=== PATIENT | male | born 1980 | race Caucasian/White ===

== ENCOUNTER 2019-02-05 05:49 | Emergency (ER) | payer OTHER ==
[2019-02-05] MEDS ORDERED: ASPIRIN 325 MG TABLET PO ONE (06:15)
--- NOTE | 2019-02-05 06:20 | PHYS DOC ---
Past History Past Medical History: Hypertension Past Surgical History: Appendectomy Adult General Chief Complaint Chief Complaint: CHEST PAIN [facility] HPI The patient is a pleasant 39-year-old male presents for evaluation of left-sided chest pain which she first noticed swelling. He states that when he went to sleep. No complaints only woke up the pains are present. Reports that his left arm felt tingling. He states he has been working a lot and doing a lot of work outside of work as he has recently moved. Reports a history of hypertension and is on a few medications for this. He states that his father had multiple heart attacks but that he was also a drug user. He says that at the time of the chest pain he felt somewhat lightheaded and had some sweating. He denies fevers or chills, vomiting, palpitations, shortness of breath, abdominal or back pain, productive cough, headache, fusion, difficulty speaking, vision changes, lower extremity edema, or syncope. He is alert and oriented �4, calm, appears to be in no distress. He reports that the discomfort is most completely resolved and is feeling much better. Review of Systems Review of Systems Constitutional: Denies fever or chills [] Eyes: Denies change in visual acuity, redness, or eye pain [] HENT: Denies nasal congestion or sore throat [] Respiratory: Denies cough or shortness of breath [] Cardiovascular: No additional information not addressed in HPI [] +left chest wall pain GI: Denies abdominal pain, nausea, vomiting, bloody stools or diarrhea [] : Denies dysuria or hematuria [] Musculoskeletal: Denies back pain or joint pain [] left arm tingling Integument: Denies rash or skin lesions [] Neurologic: Denies headache, focal weakness or sensory changes [] lightheaded Endocrine: Denies polyuria or polydipsia [] All other systems were reviewed and found to be within normal limits, except as documented in this note. Current Medications Current Medications Current Medications Medications (Trade) Dose Ordered Sig/Yoli Start Time Stop Time Status Last Admin Dose Admin Aspirin (Marquita Aspirin) 325 mg 1X ONCE 02/05/19 06:15 02/05/19 06:16 UNV Physical Exam Physical Exam Constitutional: Well developed, well nourished, no acute distress, non-toxic appearance. [] obese, calm HENT: Normocephalic, atraumatic, bilateral external ears normal, oropharynx moist, no oral exudates, nose normal. [] Eyes: PERRLA, EOMI, conjunctiva normal, no discharge. [] Neck: Normal range of motion, no tenderness, supple, no stridor. [] Cardiovascular:Heart rate regular rhythm, no murmur [] Lungs & Thorax: Bilateral breath sounds clear to auscultation [] no chest wall tenderness Abdomen: Bowel sounds normal, soft, no tenderness, no masses, no pulsatile masses. [] Skin: Warm, dry, no erythema, no rash. [] Back: No tenderness, no CVA tenderness. [] Extremities: No tenderness, no cyanosis, no clubbing, ROM intact, no edema. [] Neurologic: Alert and oriented X 3, normal motor function, normal sensory function, no focal deficits noted. [] Psychologic: Affect normal, judgement normal, mood normal. [] EKG EKG @0559 - Normal sinus rhythm, rate of 72, normal axis, no acute ischemic findings noted, no STEMI, occasional PAC, reviewed and interpreted by myself Radiology/Procedures Radiology/Procedures CXR: Acutely unremarkable[] Course & Med Decision Making Course & Med Decision Making Pertinent Labs and Imaging studies reviewed. (See chart for details) @0748 - patient updated on lab and imaging results. He states his pain is gone is feeling much better. Awaiting second troponin at this time. @0926 - patient updated on second troponin resulting negative. He has been pain- free for over an hour and is asking to go home. Advised patient follow up with his PCP in the next 1-2 days and return to the emergency Department immediately for new or worsening symptoms. He expresses verbal understanding and agreement with this plan and is stable for discharge home at this time. Dragon Disclaimer Dragon Disclaimer This electronic medical record was generated, in whole or in part, using a voice recognition dictation system. Departure Departure: Impression: Primary Impression: Left-sided chest wall pain Disposition: 01 HOME, SELF-CARE Condition: STABLE Referrals: BRUNA CARR PA-C (PCP) Patient Instructions: Chest Pain (Nonspecific), Chest Wall Pain Additional Instructions: Follow-up with your doctor in the next 1-2 days. Return to the ER for new or worsening symptoms. MONTSERRAT TAPIA DO Feb 05, 2019 06:20
--- NOTE | 2019-02-05 06:48 | RAD ---
EXAM: CHEST ONE VIEW. HISTORY: Left chest pain. COMPARISON: None. FINDINGS: A frontal view of the chest is obtained. There are no confluent infiltrates. There is no pneumothorax or pleural effusion. The heart is mildly enlarged. IMPRESSION: 1. Mild cardiomegaly. Electronically signed by: Luis F Hernández MD (02/05/2019 6:45 AM) [facility]
[2019-02-05 06:58] LABS: ALBUMIN/GLOBULIN RATIO 1.3 (1.0-1.7); CALCIUM 8.9 mg/dL (8.5-10.1); GFR 83.6; TOTAL BILIRUBIN 0.3 mg/dL (0.2-1.0)
[2019-02-05 07:07] LABS: BASO % 0 % (0-3); EOS % 0 % (0-3); HEMATOCRIT 42.1 % (39.0-53.0); HEMOGLOBIN 14.5 g/dL (13.0-17.5); LYMPH % 14 % (24-48); MEAN CORPUSCULAR HEMOGLOBIN 31 pg (25-35); MEAN CORPUSCULAR HGB CONC 35 g/dL (31-37); MEAN CORPUSCULAR VOLUME 89 fL (79-100); MONO # 0.8 x10^3/uL (0.0-1.1); MONO % 5 % (0-9); NEUT # 11.7 x10^3uL (1.8-7.7); NEUT % 81 % (31-73); PLATELET COUNT 185 x10^3/uL (140-400); RED BLOOD COUNT 4.73 x10^6/uL (4.30-5.70); RED CELL DISTRIBUTION WIDTH 14.1 % (11.5-14.5); WHITE BLOOD COUNT 14.5 x10^3/uL (4.0-11.0)
[2019-02-05 09:53] VITALS: BP 146/78
--- NOTE | 2019-02-06 06:23 | EKG ---
[address] [address] Test Date: 2019-02-05 Test Time: 05:59:25 Pat Name: TONY OSPINA Department: Room: Gender: M Workforce Planning Analyst: : 1980 Requested By: MONTSERRAT TAPIA Order Number: [id number] Reading MD: Poli Souza MD Measurements Intervals [place] Rate: 72 P: 45 PA: 154 QRS: 3 QRSD: 84 T: 57 QT: 368 QTc: 409 Interpretive Statements SINUS RHYTHM ATRIAL PREMATURE COMPLEX(ES) Electronically Signed On 02-07-2019 15:37:25 CDT by Poli Souza MD
== END 2019-02-05 09:57 | disposition home or self-care (01) ==
LOC: ER 05:49
DX: R07.89 Other chest pain (principal); I10 Essential (primary) hypertension
CPT/HCPCS: 36415; 71045; 80053; 82553; 83690; 83735; 83880; 84484; 85025; 85379; 93005; 99285

== ENCOUNTER 2019-05-12 17:38 | Emergency (ER) | payer OTHER ==
[~2019-05-12] VITALS: Ht 182.9 cm; Wt 127.0 kg
[2019-05-12 17:55] VITALS: BP 129/78
--- NOTE | 2019-05-12 18:04 | PHYS DOC ---
Past History Past Medical History: Hypertension Past Surgical History: Appendectomy Alcohol Use: None Drug Use: None Adult General Chief Complaint Chief Complaint: Neck Pain HPI HPI 39-year-old male presents with right-sided neck pain. The patient had disc replacement surgery in the cervical spine just over one month ago. He has been recovering well. Yesterday and today, the patient felt like there was increased erythema around the surgical site and up on the right side of his neck. He is also had some clear discharge from the end of the incision. Patient denies fever or chills. There has not been purulent drainage. The pain is now a 7 out of 10 pressure sensation. He is having no difficulty breathing or swallowing. He denies any new injuries or trauma. Review of Systems Review of Systems Constitutional: Denies fever or chills [] Eyes: Denies change in visual acuity, redness, or eye pain [] HENT: Right-sided neck pain[] Respiratory: Denies cough or shortness of breath [] Cardiovascular: No additional information not addressed in HPI [] GI: Denies abdominal pain, nausea, vomiting, bloody stools or diarrhea [] : Denies dysuria or hematuria [] Musculoskeletal: Denies back pain or joint pain [] Integument: Denies rash or skin lesions [] Neurologic: Denies headache, focal weakness or sensory changes [] Endocrine: Denies polyuria or polydipsia [] All other systems were reviewed and found to be within normal limits, except as documented in this note. Allergies Allergies Allergies Coded Allergies Type Severity Reaction Last Updated Verified No Known Drug Allergies 02/05/19 No Physical Exam Physical Exam Constitutional: Well developed, well nourished, no acute distress, non-toxic appearance. [] HENT: Normocephalic, atraumatic, bilateral external ears normal, oropharynx moist, no oral exudates, nose normal. [] Eyes: PERRLA, EOMI, conjunctiva normal, no discharge. [] Neck: Normal range of motion, erythema of the skin of the right neck, anterior cervical lymphadenopathy right side, mild pain with palpation. Healing surgical wound with pink margins, no active drainage.[] Cardiovascular:Heart rate regular rhythm, no murmur [] Lungs & Thorax: Bilateral breath sounds clear to auscultation [] Abdomen: Bowel sounds normal, soft, no tenderness, no masses, no pulsatile masses. [] Skin: Warm, dry, no erythema, no rash. [] Back: No tenderness, no CVA tenderness. [] Extremities: No tenderness, no cyanosis, no clubbing, ROM intact, no edema. [] Neurologic: Alert and oriented X 3, normal motor function, normal sensory f unction, no focal deficits noted. [] Psychologic: Affect normal, judgement normal, mood normal. [] EKG EKG [] Radiology/Procedures Radiology/Procedures [] Impressions: CT scan of the neck without contrast 07/12/2018 CLINICAL HISTORY: History of cervical spine surgery in mid March. Right-sided drainage. TECHNIQUE: Unenhanced, contiguous, 3 mm axial sections were obtained through the neck. One or more of the following individualized dose reduction techniques were utilized for this study: 1. Automated exposure control. 2. Adjustment of the mA and/or kV according to patient size. 3. Use of iterative reconstruction technique. FINDINGS: The mucosal structures of the nasopharynx, oropharynx, hypopharynx and larynx are within normal limits. The parotid and submandibular glands are within normal limits. The thyroid gland is heterogeneous. A 2 cm mucous retention cyst is involving the right maxillary sinus. A 2.7 cm mucous retention cyst is involving left maxillary sinus. The patient is post disc replacement at the C5-6 level. No abnormal fluid collection is seen to suggest evidence of an abscess. No hematoma is seen. Degenerative changes are seen involving the uncovertebral and facet joints scattered throughout the mid and lower cervical disc spaces. IMPRESSION: Post disc replacement at C5-6. No acute abnormality is seen. Electronically signed by: Jay Ornelas MD (05/12/2019 7:02 PM) [facility] DICTATED AND SIGNED BY: JAY ORNELAS MD DATE: 05/12/191901 CC: CHRISTA LOGAN DO; BRUNA CARR PA-C ~ Course & Med Decision Making Course & Med Decision Making Pertinent Labs and Imaging studies reviewed. (See chart for details) Patient's CT scan is negative for significant findings other than some mucoid retention cyst in the maxillary sinuses. I don't think this is anything to do with his complaint. Given the erythema and slight warmth of the skin in the area of concern I will treat the patient cellulitis with Keflex for 7 days. He will follow-up with his surgeon's office as needed. He is stable for discharge at this time. [] Dragon Disclaimer Dragon Disclaimer This electronic medical record was generated, in whole or in part, using a voice recognition dictation system. Departure Departure: Impression: Primary Impression: Cellulitis of neck Disposition: HOME, SELF-CARE Condition: STABLE Referrals: BRUNA CARR PA-C (PCP) Patient Instructions: Cellulitis, [id number] Scripts Cephalexin (KEFLEX) 500 Mg Capsule 1 CAP PO TID for cellulitis for 7 Days, #21 CAP 0 Refills Prov: CHRISTA LOGAN DO 05/12/19 CHRISTA LOGAN DO May 12, 2019 18:04
--- NOTE | 2019-05-12 19:04 | RAD ---
CT scan of the neck without contrast 07/12/2018 CLINICAL HISTORY: History of cervical spine surgery in mid March. Right-sided drainage. TECHNIQUE: Unenhanced, contiguous, 3 mm axial sections were obtained through the neck. One or more of the following individualized dose reduction techniques were utilized for this study: 1. Automated exposure control. 2. Adjustment of the mA and/or kV according to patient size. 3. Use of iterative reconstruction technique. FINDINGS: The mucosal structures of the nasopharynx, oropharynx, hypopharynx and larynx are within normal limits. The parotid and submandibular glands are within normal limits. The thyroid gland is heterogeneous. A 2 cm mucous retention cyst is involving the right maxillary sinus. A 2.7 cm mucous retention cyst is involving left maxillary sinus. The patient is post disc replacement at the C5-6 level. No abnormal fluid collection is seen to suggest evidence of an abscess. No hematoma is seen. Degenerative changes are seen involving the uncovertebral and facet joints scattered throughout the mid and lower cervical disc spaces. IMPRESSION: Post disc replacement at C5-6. No acute abnormality is seen. Electronically signed by: Jay Beck MD (05/12/2019 7:02 PM) [facility]
[2019-05-12] MEDS ORDERED: CEPH-264 PO (19:27)
== END 2019-05-12 19:30 | disposition home or self-care (01) ==
LOC: ER 17:38
DX: L03.221 Cellulitis of neck (principal); I10 Essential (primary) hypertension
CPT/HCPCS: 70490; 99284

== ENCOUNTER 2019-07-07 18:27 | Emergency (ER) | payer OTHER ==
[~2019-07-07] VITALS: Ht 182.9 cm; Wt 136.1 kg
[~2019-07-07 18:27] MED LIST: CEPH-264 PO
[2019-07-07] MEDS ORDERED: KETOROLAC 60 MG/2 ML VIAL. IM ONE (19:00)
[2019-07-07] MEDS ORDERED: methylPREDNISolone ACETATE 40 MG/ML VIAL. IM ONE (19:00)
--- NOTE | 2019-07-07 19:02 | PHYS DOC ---
Past History Past Medical History: Hypertension, Sciatica Past Surgical History: Appendectomy, Cholecystectomy, Other Additional Past Surgical Histo: C spine, hernia repair Alcohol Use: None Drug Use: None Adult General Chief Complaint Chief Complaint: BACK PAIN OR INJURY ..." I twisted my back.. moving some boxes.. " " I was twisting.. side to side.. and must have strained my back... " [facility] HPI Patient is a 39 year old male who presents with above hx and complaints right flank back pain that follows the right sciatic nerve down into hip. No midline tenderness. No history of fever or chills. No history of IV drug use. No history immunosuppression. No problems with defecation or urination. 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 Patient has no saddle loss. Review of Systems Review of Systems Constitutional: Denies fever or chills [] Eyes: Denies change in visual acuity, redness, or eye pain [] HENT: Denies nasal congestion or sore throat [] Respiratory: Denies cough or shortness of breath [] Cardiovascular: No additional information not addressed in HPI [] GI: Denies abdominal pain, nausea, vomiting, bloody stools or diarrhea [] : Denies dysuria or hematuria [] Musculoskeletal: Patient has complaints of lumbar sacral back pain and sciatica on right Integument: Denies rash or skin lesions [] Neurologic: Denies headache, focal weakness or sensory changes [] Endocrine: Denies polyuria or polydipsia [] All other systems were reviewed and found to be within normal limits, except as documented in this note. Family History Family History Noncontributory Current Medications Current Medications See nursing for home meds Allergies Allergies Allergies Coded Allergies Type Severity Reaction Last Updated Verified No Known Drug Allergies 02/05/19 No Physical Exam Physical Exam Constitutional: Well developed, well nourished, no acute distress, non-toxic appearance. [] HENT: Normocephalic, atraumatic, bilateral external ears normal, oropharynx moist, no oral exudates, nose normal. []Craig Eyes: PERRLA, EOMI, conjunctiva normal, no discharge. [] Neck: Normal range of motion, no tenderness, supple, no stridor. [] Cardiovascular:Heart rate regular rhythm, no murmur [] Lungs & Thorax: Bilateral breath sounds clear to auscultation [] Abdomen: Bowel sounds normal, soft, no tenderness, no masses, no pulsatile masses. [] No saddle loss. Circumcised male. Old surgical scars. Obese. Skin: Warm, dry, no erythema, no rash. Tattoos. Back: No tenderness, no CVA tenderness. [] Extremities: No tenderness, no cyanosis, no clubbing, ROM intact, no edema. [] Straight leg lift on right exacerbates his sciatic pain Neurologic: Alert and oriented X 3, normal motor function, normal sensory function, no focal deficits noted. []DTRs +2 at patella. Patient is ambulatory. Psychologic: Affect anxious, judgement normal, mood normal. [] EKG EKG [] Radiology/Procedures Radiology/Procedures X-rays deferred at this time.[] Course & Med Decision Making Course & Med Decision Making Pertinent Labs and Imaging studies reviewed. (See chart for details) Use ice packs as needed. Gentle massage. Take Tylenol and ibuprofen for pain. For marked pain take Vicoprofen and Flexeril. Follow-up primary care. Return if any concerns. If no improvement may need further evaluation of lumbar sacral and sciatic pain. Impression: 1. Muscle Strain- Back 2. Rt. Sciatica [] Dragon Disclaimer Dragon Disclaimer This electronic medical record was generated, in whole or in part, using a voice recognition dictation system. Departure Departure: Disposition: 01 HOME/RESIDENCE PRIOR TO ADM Condition: STABLE Referrals: BRUNA CARR PA-C (PCP) Scripts Cyclobenzaprine Hcl (CYCLOBENZAPRINE HCL) 10 Mg Tablet 10 MG PO tidprn for muscle spasms, #30 TAB Prov: ANGELIKA CANALES MD 07/07/19 Hydrocodone/Ibuprofen (HYDROCODONE-IBUPROFEN 7.5-200 ) 1 Each Tablet 1 TAB PO PRN Q6HRS PRN for PAIN, #30 TAB 0 Refills Prov: ANGELIKA CANALES MD 07/07/19 Dragon Disclaimer This chart was dictated in whole or in part using Voice Recognition software in a busy, high-work load, and often noisy Emergency Department environment. It may contain unintended and wholly unrecognized errors or omissions. ANGELIKA CANALES MD Jul 07, 2019 19:02
[2019-07-07] MEDS ORDERED: HYDR-1179 PO (19:22)
[2019-07-07] MEDS ORDERED: CYCL-331 PO (19:22)
[2019-07-07] MEDS ORDERED: ORPHENADRINE CITRATE 60 MG/2 ML VIAL. IM ONE (19:30)
[2019-07-07] MEDS ORDERED: MORPHINE SULFATE 10 MG/ML SYRINGE. SQ ONE (19:30)
[2019-07-07 20:10] VITALS: BP 148/77
[2019-07-07 20:19] LABS: BACTERIA,URINE 0 /HPF (0-FEW); BILIRUBIN,URINE NEG (NEG); CLARITY,URINE CLEAR; COLOR,URINE AMBER; GLUCOSE,URINE NEG (NEG); NITRITE,URINE NEG (NEG); RBC,URINE RARE /HPF (0-2); SQUAMOUS EPITHELIAL CELL,UR OCC /LPF; UROBILINOGEN,URINE 0.2 mg/dL (0.2 mg/dL); WBC,URINE 0 /HPF (0-4)
[2019-07-07 20:34] LABS: AMPHETAMINE/METHAMPHETAMINE NEG (NEG); BARBITURATES NEG (NEG); BENZODIAZEPINES NEG (NEG); CANNABINOIDS NEG (NEG); COCAINE NEG (NEG); METHADONE NEG (NEG); OPIATES NEG (NEG); PHENCYCLIDINE NEG (NEG)
== END 2019-07-07 20:13 | disposition home or self-care (01) ==
LOC: ER 18:27
DX: S39.012A Strain of muscle, fascia and tendon of lower back, initial encounter (principal); M54.41 Lumbago with sciatica, right side; I10 Essential (primary) hypertension; Z90.89 Acquired absence of other organs; Z90.49 Acquired absence of other specified parts of digestive tract; Z98.890 Other specified postprocedural states; X50.0XXA Overexertion from strenuous movement or load, initial encounter; Y93.89 Activity, other specified; Y92.89 Other specified places as the place of occurrence of the external cause; Y99.8 Other external cause status
CPT/HCPCS: 36415; 80307; 81001; 96372; 99284; J1030; J1885; J2270; J2360

== ENCOUNTER → 2021-02-17 | Outpatient (CLI) | payer OTHER ==
[~2021-02-17] MED LIST changes: +CYCL-331 PO; +HYDR-1179 PO
--- NOTE | 2021-02-17 15:24 | RAD ---
EXAM: Bilateral knees, standing view; left knee, 2 views. HISTORY: Pain. COMPARISON: None. FINDINGS: A standing view both knees and 2 views of the left knee are obtained. There is no fracture, dislocation or subluxation. There is a moderate left knee effusion. There is mild left patellofemora l compartment spurring. There is enthesopathy along the superior left patella. IMPRESSION: 1. Moderate left knee effusion. 2. Mild left patellofemoral compartment osteoarthritis. Electronically signed by: Kalee Gates MD (02/17/2021 3:22 PM) [id number]
== END ==
LOC: RAD 15:00
PROVIDERS: ATTEND Physician Assistant
DX: M17.12 Unilateral primary osteoarthritis, left knee (principal); M25.462 Effusion, left knee; M76.892 Other specified enthesopathies of left lower limb, excluding foot; M25.562 Pain in left knee
CPT/HCPCS: 73560; 73565

== ENCOUNTER 2021-05-29 15:11 | Emergency (ER) | payer OTHER ==
[~2021-05-29] VITALS: Ht 182.9 cm; Wt 127.2 kg
[~2021-05-29 15:11] MED LIST changes: -CYCL-331 PO; +CYCL10TA19 PO
[2021-05-29 15:31] VITALS: BP 109/77
[2021-05-29] MEDS ORDERED: IV NORMAL SALINE 1,000ML 1,000 ML IV ONE (15:45)
[2021-05-29] MEDS ORDERED: MORPHINE SULFATE 4 MG/ML DISP.SYRIN. IV ONE (15:45)
[2021-05-29] MEDS ORDERED: ONDANSETRON PF 4 MG/2 ML VIAL. IVP ONE (15:45)
[2021-05-29 16:02] LABS: BASO % 1 % (0-3); EOS # 0.3 x10^3/uL (0.0-0.7); EOS % 4 % (0-3); HEMATOCRIT 43.5 % (39.0-53.0); LYMPH # 1.9 x10^3/uL (1.0-4.8); LYMPH % 28 % (24-48); MEAN CORPUSCULAR HEMOGLOBIN 30 pg (25-35); MEAN CORPUSCULAR HGB CONC 35 g/dL (31-37); MEAN CORPUSCULAR VOLUME 87 fL (79-100); MONO # 0.4 x10^3/uL (0.0-1.1); MONO % 6 % (0-9); NEUT # 4.2 x10^3uL (1.8-7.7); NEUT % 61 % (31-73); PLATELET COUNT 139 x10^3/uL (140-400); RED BLOOD COUNT 5.01 x10^6/uL (4.30-5.70); RED CELL DISTRIBUTION WIDTH 14.6 % (11.5-14.5); WHITE BLOOD COUNT 6.8 x10^3/uL (4.0-11.0)
[2021-05-29 16:12] LABS: CALCIUM 8.4 mg/dL (8.5-10.1); CREATININE 1.1 mg/dL (0.7-1.3); GFR 74.1; POTASSIUM 3.5 mmol/L (3.5-5.1)
[2021-05-29] MEDS ORDERED: IOHEXOL 300 MG/ML 75 ML VIAL. IV ONE (16:15)
[2021-05-29 16:18] LABS: ALBUMIN 3.8 g/dL (3.4-5.0); ALBUMIN/GLOBULIN RATIO 1.3 (1.0-1.7); TOTAL BILIRUBIN 0.4 mg/dL (0.2-1.0); TOTAL PROTEIN 6.8 g/dL (6.4-8.2)
--- NOTE | 2021-05-29 16:38 | RAD ---
PQRS Compliance Statement: One or more of the following individualized dose reduction techniques were utilized for this examinat ion: 1. Automated exposure control 2. Adjustment of the mA and/or kV according to patient size 3. Use of iterative reconstruction technique Exam performed: CT abdomen and pelvis with contrast HISTORY: Lower abdominal and pelvic pain history of right inguinal hernia repair. DATE OF SERVICE: 05/29/2021. COMPARISON: None available TECHNIQUE: Contiguous helical acquisitions are obtained through the abdomen and pelvis during intrave nous administration of 75 cc of Isovue-370. Sagittal and coronal reformatted images are obtained and reviewed. FINDINGS: The lung bases are clear. The visualized heart is normal. Diffuse hepatic steatosis. Spleen and pancreas appear normal. Cholecystectomy. Both adrenal glands an d bilateral kidneys are normal in size with symmetric excretion of contrast via both kidneys. There i s no hydronephrosis or nephrolithiasis. Small and large bowel loops are nondilated and unremarkable. There is diffuse scattered stool throughout the colon. Previous appendectomy. The urinary bladder is distended. The prostate gland, seminal vesicles and rectum appear normal. Interrogation of bone windows demonstrates mild spondylotic changes. IMPRESSION: No acute intra-abdominal or pelvic process seen. Diffuse scattered stool throughout the colon. Correlate clinically for constipation. Electronically signed by: Celine Monsno MD (05/29/2021 4:35 PM) [facility]
[2021-05-29] MEDS ORDERED: MAGN296S68 PO (17:58)
[2021-05-29] MEDS ORDERED: POLY119P4 PO (17:58)
--- NOTE | 2021-05-29 17:58 | PHYS DOC ---
Past History Past Medical History: Hypertension, Sciatica Additional Past Medical Histor: testosterone supplements ([employer]) Past Surgical History: Appendectomy, Cholecystectomy, Other Additional Past Surgical Histo: C spine, hernia repair (VASYL SHAIKH [employer]) Alcohol Use: None Drug Use: None (BESSIEV[employer]YL JAMA [employer]) Adult General Chief Complaint Chief Complaint: GROIN PAIN HPI HPI Patient is a 41-year-old male with history of cholecystectomy, appendectomy presenting to the ED today complaining of 10 out of 10 lower abdominal pain, symptoms began 1 hour prior to coming to the ED. Patient describes the pain as sharp and intermittent, he states the pain comes and 5 minutes cycles. Denies any fever, nausea, vomiting. Denies anything specifically exacerbating or relieving the pain ([employer]KH [employer]) Review of Systems Review of Systems Constitutional: Denies fever or chills [] Eyes: Denies change in visual acuity, redness, or eye pain [] HENT: Denies nasal congestion or sore throat [] Respiratory: Denies cough or shortness of breath [] Cardiovascular: No additional information not addressed in HPI [] GI: Reports lower abdominal pain, denies nausea, vomiting, bloody stools or diarrhea [] : Denies dysuria or hematuria [] Musculoskeletal: Denies back pain or joint pain [] Integument: Denies rash or skin lesions [] Neurologic: Denies headache, focal weakness or sensory changes [] All other systems were reviewed and found to be within normal limits, except as documented in this note. ([employer]KH [employer]) Current Medications Current Medications Current Medications Medications (Trade) Dose Ordered Sig/Yoli Start Time Stop Time Status Last Admin Dose Admin Iohexol (Omnipaque 300 Mg/ml) 75 ml 1X ONCE 05/29/21 16:15 05/29/21 16:16 DC 05/29/21 16:15 75 ML Morphine Sulfate (Morphine 4mg Syringe) 4 mg 1X ONCE 05/29/21 15:45 05/29/21 15:49 DC 05/29/21 15:57 4 MG Ondansetron HCl (Zofran) 4 mg 1X ONCE 05/29/21 15:45 05/29/21 15:49 DC 05/29/21 15:58 4 MG Sodium Chloride 1,000 ml @ 1,000 mls/hr 1X ONCE 05/29/21 15:45 05/29/21 16:44 DC 05/29/21 15:57 1,000 MLS/HR ([employer]KH [employer]) Allergies Allergies Allergies Coded Allergies Type Severity Reaction Last Updated Verified No Known Drug Allergies 02/05/19 No ([employer]KH [employer]) Physical Exam Physical Exam Constitutional: Well developed, well nourished, no acute distress, non-toxic appearance. [] HENT: Normocephalic, atraumatic, bilateral external ears normal, oropharynx moist, no oral exudates, nose normal. [] Eyes: PERRLA, EOMI, conjunctiva normal, no discharge. [] Neck: Normal range of motion, no tenderness, supple, no stridor. [] Cardiovascular:Heart rate regular rhythm, no murmur [] Lungs & Thorax: Bilateral breath sounds clear to auscultation [] Abdomen: Bowel sounds normal, soft, mild mid lower abdominal tenderness, no right upper quadrant or right lower quadrant tenderness, no masses, no pulsatile masses. [] Skin: Warm, dry, no erythema, no rash. [] Back: No tenderness, no CVA tenderness. [] Extremities: No tenderness, no cyanosis, no clubbing, ROM intact, no edema. [] Neurologic: Alert and oriented X 3, normal motor function, normal sensory function, no focal deficits noted. [] Psychologic: Affect normal, judgement normal, mood normal. [] ([employer]) Current Patient Data Vital Signs Vital Signs Date Time Temp Pulse Resp B/P (MAP) Pulse Ox O2 Delivery O2 Flow Rate FiO2 05/29/21 15:31 98.1 67 18 109/77 (88) 98 Room Air Lab Results Laboratory Tests Test 05/29/21 15:50 White Blood Count 6.8 x10^3/uL (4.0-11.0) Red Blood Count 5.01 x10^6/uL (4.30-5.70) Hemoglobin 15.0 g/dL (13.0-17.5) Hematocrit 43.5 % (39.0-53.0) Mean Corpuscular Volume 87 fL (79-100) Mean Corpuscular Hemoglobin 30 pg (25-35) Mean Corpuscular Hemoglobin Concent 35 g/dL (31-37) Red Cell Distribution Width 14.6 % (11.5-14.5) H Platelet Count 139 x10^3/uL (140-400) L Neutrophils (%) (Auto) 61 % (31-73) Lymphocytes (%) (Auto) 28 % (24-48) Monocytes (%) (Auto) 6 % (0-9) Eosinophils (%) (Auto) 4 % (0-3) H Basophils (%) (Auto) 1 % (0-3) Neutrophils # (Auto) 4.2 x10^3uL (1.8-7.7) Lymphocytes # (Auto) 1.9 x10^3/uL (1.0-4.8) Monocytes # (Auto) 0.4 x10^3/uL (0.0-1.1) Eosinophils # (Auto) 0.3 x10^3/uL (0.0-0.7) Basophils # (Auto) 0.0 x10^3/uL (0.0-0.2) Sodium Level 145 mmol/L (136-145) Potassium Level 3.5 mmol/L (3.5-5.1) Chloride Level 105 mmol/L (98-107) Carbon Dioxide Level 30 mmol/L (21-32) Anion Gap 10 (6-14) Blood Urea Nitrogen 22 mg/dL (8-26) Creatinine 1.1 mg/dL (0.7-1.3) Estimated GFR (Cockcroft-Gault) 74.1 BUN/Creatinine Ratio 20 (6-20) Glucose Level 137 mg/dL (70-99) H Calcium Level 8.4 mg/dL (8.5-10.1) L Total Bilirubin 0.4 mg/dL (0.2-1.0) Aspartate Amino Transferase (AST) 49 U/L (15-37) H Alanine Aminotransferase (ALT) 68 U/L (16-63) H Alkaline Phosphatase 41 U/L (46-116) L Total Protein 6.8 g/dL (6.4-8.2) Albumin 3.8 g/dL (3.4-5.0) Albumin/Globulin Ratio 1.3 (1.0-1.7) Lipase 161 U/L (73-393) Ethyl Alcohol Level < 10 mg/dL (0-10) (VASYL SHAIKH APRN) EKG EKG [] (VASYL SHAIKH APRN) Radiology/Procedures Radiology/Procedures []PROCEDURE: CT ABD PELV W/ IV CONTRST ONLY PQRS Compliance Statement: One or more of the following individualized dose reduction techniques were utilized for this examination: 1. Automated exposure control 2. Adjustment of the mA and/or kV according to patient size 3. Use of iterative reconstruction technique Exam performed: CT abdomen and pelvis with contrast HISTORY: Lower abdominal and pelvic pain history of right inguinal hernia repair. DATE OF SERVICE: 05/29/2021. COMPARISON: None available TECHNIQUE: Contiguous helical acquisitions are obtained through the abdomen and pelvis during intravenous administration of 75 cc of Isovue-370. Sagittal and coronal reformatted images are obtained and reviewed. FINDINGS: The lung bases are clear. The visualized heart is normal. Diffuse hepatic steatosis. Spleen and pancreas appear normal. Cholecystectomy. Both adrenal glands and bilateral kidneys are normal in size with symmetric excretion of contrast via both kidneys. There is no hydronephrosis or neph rolithiasis. Small and large bowel loops are nondilated and unremarkable. There is diffuse scattered stool throughout the colon. Previous appendectomy. The urinary bladder is distended. The prostate gland, seminal vesicles and rectum appear normal. Interrogation of bone windows demonstrates mild spondylotic changes. IMPRESSION: No acute intra-abdominal or pelvic process seen. Diffuse scattered stool throughout the colon. Correlate clinically for constipation. Electronically signed by: Celine Monson MD (05/29/2021 4:35 PM) [facility] DICTATED AND SIGNED BY: CELINE MONSON MD DATE: 05/29/21 1627 CC: VASYL SHAIKH APRN; BRUNA CARR PA-C ~MTH0 0 (VASYL SHAIKH APRN) Heart Score C/O Chest Pain: N/A Risk Factors: Risk Factors: DM, Current or recent (<one month) smoker, HTN, HLP, family history of CAD, obesity. Risk Scores: Risk Factors: DM, Current or recent (<one month) smoker, HTN, HLP, family history of CAD, obesity. (VASYL SHAIKH APRN) Course & Med Decision Making Course & Med Decision Making Pertinent Labs and Imaging studies reviewed. (See chart for details) This is a 41-year-old male patient presented to the ED today with lower abdominal pain that began prior to coming to the ED. CBC no acute findings, CMP with AST of 49, ALT of 69, ALK 41. CT of the abdomen and pelvic was negative for any acute findings, noted for constipation. Patient educated on constipation prevention and management. Discharge to home (VASYL SHAIKH APRN) Dragon Disclaimer Dragon Disclaimer This electronic medical record was generated, in whole or in part, using a voice recognition dictation system. (VASYL SHAIKH APRN) Attending Co-Sign The patient was seen and interviewed as well as examined at the bedside. The chart was reviewed. The case was discussed. Agree with the plan of care. (CHRISTA LOGAN DO) Departure Departure: Impression: Primary Impression: Lower abdominal pain Additional Impression: Constipation Disposition: 01 HOME / SELF CARE / HOMELESS Condition: STABLE Referrals: BRUNA CARR PA-C (PCP) follow up in one week Patient Instructions: Abdominal Pain, Constipation, Adult Additional Instructions: You were evaluated in the emergency room and noted to be constipated. Please increase your activity level, increase your dietary fiber intake as well as water intake. Take lowf-ost-tgjilhc remedies for constipation including magnesium citrate anytime you are constipated. You can take MiraLAX or stool softener every day to reduce episodes of constipation Scripts Magnesium Citrate (MAGNESIUM CITRATE) 296 Ml Solution 296 ML PO ONCE, #296 ML Prov: VASYL SHAIKH APRN 05/29/21 Polyethylene Glycol 3350 (MIRALAX) 119 Gm Powder 17 GM PO DAILY for constipation, #527 GM 0 Refills dissolve in water Prov: VASYL SHAIKH APRN 05/29/21 Problem Qualifiers Additional Impression: Constipation Constipation type: unspecified constipation type Qualified Codes: K59.00 - Constipation, unspecified VASYL SHAIKH APRN May 29, 2021 17:58 CHRISTA LOGAN DO May 30, 2021 08:59
[2021-05-29] MEDS ORDERED: MAGNESIUM CITRATE 296 ML SOLUTION. PO ONE (18:30)
[2021-05-29] MEDS ORDERED: BISACODYL TAB 5 MG TABLET.DR. PO ONE (18:30)
== END 2021-05-29 18:12 | disposition home or self-care (01) ==
LOC: ER 15:11
DX: K59.00 Constipation, unspecified (principal); R10.30 Lower abdominal pain, unspecified; I10 Essential (primary) hypertension; Z90.89 Acquired absence of other organs; Z90.49 Acquired absence of other specified parts of digestive tract
CPT/HCPCS: 36415; 74177; 80053; 83690; 85025; 96361; 96374; 96375; 99285; G0480; J2270; J2405; J7030; Q9967